=== PATIENT | male | born 1995 | race African-American/Black ===

== ENCOUNTER 2018-02-23 08:29 | Emergency (ER) | payer OTHER ==
[~2018-02-23] VITALS: Ht 180.3 cm; Wt 73.5 kg
--- NOTE | 2018-02-23 08:31 | NUR ---
PT AMBULATES TO BED 7
[2018-02-23 08:35] VITALS: BP 120/66
--- NOTE | 2018-02-23 08:40 | NUR ---
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 HX; SICKLE CELL RX; DENIES
--- NOTE | 2018-02-23 08:51 | NUR ---
Patient being evaluated by physician at bedside.
[2018-02-23] MEDS ORDERED: MORPHINE SULFATE 4 MG/ML SYR IM ONE (08:55)
[2018-02-23] MEDS ORDERED: cefTRIAXone 250 MG in LIDOCAINE MPF 1% - 5 mL VIAL 0.9 ML IM ONE (08:55)
[2018-02-23 09:52] VITALS: BP 102/53
== END 2018-02-23 09:51 | disposition home or self-care (01) ==
LOC: MED 08:29
DX: J02.9 Acute pharyngitis, unspecified (principal); D57.1 Sickle-cell disease without crisis; M25.50 Pain in unspecified joint
CPT/HCPCS: 96372; 99283; J0696; J2001; J2270